=== PATIENT | female | born 1995 | race Caucasian/White ===

== ENCOUNTER 2022-02-09 09:46 | Outpatient (CLI) | payer OTHER | END 2022-02-09 09:47 | disposition home or self-care (01) | LOC: CSHULT 09:46 | PROVIDERS: ATTEND Family Medicine | DX: Z34.82 Encounter for supervision of other normal pregnancy, second trimester (principal); Z3A.23 23 weeks gestation of pregnancy | CPT/HCPCS: 76805 ==

== ENCOUNTER 2022-03-17 02:17 | Day surgery (SDC) | payer OTHER ==
[2022-03-17] MEDS ORDERED: hydrALAZINE 20 MG/ML VIAL SLOW IVP PRN (02:33)
[2022-03-17] MEDS ORDERED: Lactated Ringer's 1,000 ML IV SCH ×2 (02:45)
[2022-03-17 02:55] LABS: Bilirubin Neg (Negative); Blood, Urine Negative (Negative); Clarity Clear (Clear); Glucose, Urine (Dipstick) Normal (Negative); Ketone, Urine Negative (Negative); Leukocyte 25 (Negative); Nitrite Negative (Negative); Protein, Urine (Dipstick) 30 mg/dl (Neg-Trace); Specific Gravity, Urine 1.015 (1.002-1.036); Urobilinogen Normal mg/dL (Less than 2)
[2022-03-17 02:56] LABS: Bacteria/HPF None Seen HPF (None Seen); RBC/HPF 0-3 HPF (0-3); Squamous Epithelial 0-3 HPF (0-3); Urine Culture Reflex No No
[2022-03-17 02:57] LABS: #Basophils 0.1 10x3/uL (0.0-0.2); #Eosinphils 0.1 10x3/uL (0.0-0.5); #Monocytes 0.5 10x3/uL (0.0-1.1); #Neutrophils 4.9 10x3/uL (1.5-8.4); %Basophils 0.6 % (0.0-2.0); %Eosinophils 1.7 % (0.0-6.0); %Lymphocytes 27.2 % (18.0-47.0); %Monocytes 6.6 % (0.0-10.0); %Neutrophils 63.1 % (40.0-75.0); Mean Corpuscular HGB CONC 36.5 g/dL (32.0-36.0); Mean Corpuscular Hemoglobin 32.6 pg (27.0-33.0); Mean Corpuscular Volume 89.3 fl (81.6-98.3); Mean Platelet Volume 9.5 fl (7.4-10.4); Platelet Count 212 10x3/uL (150-450); RBC Distribution Width 12.1 % (11.5-14.5); Red Blood Cell (RBC) Count 3.37 10x6/uL (3.90-5.03); White Blood Cell (WBC) Count 7.8 10x3/uL (3.5-10.5)
[2022-03-17] MEDS ORDERED: Morphine 4 MG/ML VIAL ONE (03:00)
[2022-03-17 03:11] VITALS: BMI 26.2
[2022-03-17 03:13] LABS: Anion Gap 15 mmol/L (10-20); BUN (Urea Nitrogen) 19 mg/dL (7.0-18.7); Calc. Creatinine Clearance 112 mL/min (70-130); Carbon Dioxide 22 mmol/L (22-29); Chloride 106 mmol/L (98-107); Glucose 87 mg/dL (70-105); Potassium 3.8 mmol/L (3.5-5.1); Sodium 139 mmol/L (136-145)
[2022-03-17] MEDS ORDERED: Promethazine HCl 25 MG/ML VIAL IM PRN (03:13)
[2022-03-17] MEDS ORDERED: Famotidine/PF 20 mg/2ml Vial SLOW IVP SCH (03:15)
[2022-03-17] MEDS ORDERED: Morphine 4 MG/ML VIAL SLOW IVP SCH (03:15)
== END 2022-03-17 06:30 | disposition home or self-care (01) ==
LOC: CSHLD/OP 02:17
PROVIDERS: ATTEND Obstetrics & Gynecology
DX: O99.891 Other specified diseases and conditions complicating pregnancy (principal); R10.9 Unspecified abdominal pain; N13.30 Unspecified hydronephrosis; O23.43 Unspecified infection of urinary tract in pregnancy, third trimester; N39.0 Urinary tract infection, site not specified; B95.1 Streptococcus, group B, as the cause of diseases classified elsewhere; Z3A.28 28 weeks gestation of pregnancy; Z79.2 Long term (current) use of antibiotics
CPT/HCPCS: 36415; 76770; 80048; 81001; 85025; 87086; 96360; 96361; 96375; 99283; J2270; J2550; S0028

== ENCOUNTER 2022-05-29 19:30 | Inpatient (IN) | payer OTHER ==
[~2022-05-29 19:30] MED LIST: Bupivacaine 0.25% HCL 30 ML VIAL ONE
[2022-05-29] MEDS ORDERED: NS w/ Oxytocin 30 units 500 ML IV SCH (22:26)
[2022-05-29] MEDS ORDERED: Carboprost 250 MCG/ML AMP IM PRN (22:26)
[2022-05-29] MEDS ORDERED: Lactated Ringer's 1,000 ML IV SCH (22:26)
[2022-05-29] MEDS ORDERED: Promethazine HCl 25 MG/ML VIAL IM PRN (22:26)
[2022-05-29] MEDS ORDERED: Misoprostol 200 MCG TAB PR PRN (22:26)
[2022-05-29] MEDS ORDERED: Lidocaine 1% (PF) 30 ML VIAL SC PRN (22:26)
[2022-05-29] MEDS ORDERED: Diphenoxylate HCl/Atropine Tablet PO PRN (22:26)
[2022-05-29] MEDS ORDERED: Methylergonovine 0.2 MG/ML VIAL IM PRN (22:26)
[2022-05-29] MEDS ORDERED: Ibuprofen 800 MG TAB PO PRN (22:26)
[2022-05-29] MEDS ORDERED: Acetaminophen 500 MG TAB PO PRN (22:26)
[2022-05-29] MEDS ORDERED: Ondansetron PF 4 MG/2 ML Vial IVP PRN (22:26)
[2022-05-29] MEDS ORDERED: HYDROcodone/Acetaminophen 5/325 mg Tablet PO PRN (22:26)
[2022-05-29] MEDS ORDERED: hydrALAZINE 20 MG/ML VIAL SLOW IVP PRN (22:26)
[2022-05-29] MEDS ORDERED: Penicillin G Potassium 5 MILL.UNITS in Sodium Chloride 0.9% 100 ML IVPB SCH (22:30)
[2022-05-29] MEDS: Misoprostol 100 MCG TAB PO SCH (23:03)
[2022-05-29 23:21] LABS: Hemoglobin 11.6 g/dL (12.0-15.5); Mean Corpuscular HGB CONC 36.4 g/dL (32.0-36.0); Mean Corpuscular Hemoglobin 31.9 pg (27.0-33.0); Mean Corpuscular Volume 87.6 fl (81.6-98.3); Platelet Count 233 10x3/uL (150-450); RBC Distribution Width 12.5 % (11.5-14.5); Red Blood Cell (RBC) Count 3.64 10x6/uL (3.90-5.03)
[2022-05-29 23:59] LABS: Hep B Surf Ag Non-Reactive S/CO (NonReactive); Syphilis Antibody Nonreactive (Nonreactive); Syphilis Antibody Index 0.04 S/CO (<1.00 Non-Reactive)
[2022-05-30 00:33] LABS: HBSAg Index 0.18 S/CO (0-0.99)
[2022-05-30 00:49] LABS: SARS-CoV-2 NAA Rapid Test Not Detected (NotDetected)
[2022-05-30 01:09] VITALS: BMI 28.8
[2022-05-30] MEDS ORDERED: Penicillin G 2.5 MILL.units 2.5 MILL.UNITS in Premix Bag 1 BAG IVPB SCH (02:00)
[2022-05-30] MEDS: Misoprostol 100 MCG TAB PO SCH ×2 (03:25→20:16)
[2022-05-30] MEDS ORDERED: Penicillin G Potassium 5 MILL.UNITS VIAL ONE (07:52)
[2022-05-30] MEDS ORDERED: Fentanyl 2 mcg/Bup 0.1% Cadd 100 ML ONE (09:09)
[2022-05-30] MEDS ORDERED: Ondansetron PF 4 MG/2 ML Vial IVP PRN ×2 (10:34→17:43)
[2022-05-30] MEDS ORDERED: Moisturizing Cream (Eucerin) 113 GM JAR TOP PRN (10:34)
[2022-05-30] MEDS ORDERED: Naloxone HCl 0.4 mg/ml Vial IVP PRN ×2 (10:34)
[2022-05-30] MEDS ORDERED: Promethazine HCl 25 MG/ML VIAL IM PRN ×2 (10:34→17:43)
[2022-05-30] MEDS ORDERED: Lactated Ringer's 500 ML IV PRN (10:34)
[2022-05-30] MEDS ORDERED: ePHEDrine Sulfate 50 MG/10 ML VIAL SLOW IVP PRN (10:34)
[2022-05-30] MEDS ORDERED: diphenhydrAMINE 50 MG/ML VIAL IVP PRN (10:34)
[2022-05-30] MEDS ORDERED: Acetaminophen 325 MG TAB PO PRN (10:34)
[2022-05-30] MEDS ORDERED: Fentanyl 2 mcg/Bupivacaine 0.1% Cassette 100 ML EPIDURAL SCH (10:45)
[2022-05-30] MEDS ORDERED: Communication Order-Pharmacy FS SCH (10:45)
[2022-05-30] MEDS ORDERED: Ondansetron PF 4 MG/2 ML Vial ONE (15:28)
[2022-05-30] MEDS ORDERED: Bisacodyl 10 MG SUPP PR PRN (17:43)
[2022-05-30] MEDS ORDERED: HYDROcodone/Acetaminophen 5/325 mg Tablet PO PRN ×2 (17:43)
[2022-05-30] MEDS ORDERED: Lanolin Ointment 7 GM TUBE TOP PRN (17:43)
[2022-05-30] MEDS ORDERED: NS w/ Oxytocin 30 units 500 ML IV SCH (17:43)
[2022-05-30] MEDS ORDERED: diphenhydrAMINE 25 MG CAP PO PRN (17:43)
[2022-05-30] MEDS ORDERED: Milk Of Magnesia 30 ML UDCUP PO PRN (17:43)
[2022-05-30] MEDS ORDERED: hydrALAZINE 20 MG/ML VIAL SLOW IVP PRN (17:43)
[2022-05-30] MEDS ORDERED: Preparation H Ointment 28 GM TUBE PR PRN (17:43)
[2022-05-30] MEDS ORDERED: Benzocaine-Menthol 82.5 ML CAN TOP PRN (17:43)
[2022-05-30] MEDS ORDERED: Boostrix 0.5 ML (Tdap) VIAL IM ONE (17:43)
[2022-05-30] MEDS: Ibuprofen 800 MG TAB PO SCH (18:47)
[2022-05-31] MEDS: Ibuprofen 800 MG TAB PO SCH ×3 (01:35→13:15)
[2022-05-31] MEDS: Docusate 100 MG CAP PO SCH ×2 (01:36→09:27)
[2022-05-31] MEDS ORDERED: Prenatal Vitamin 1 TAB PO SCH (09:00)
[2022-05-31] MEDS: Ferrous Sulfate 325 MG TAB PO SCH ×2 (09:34→10:23)
[2022-05-31 16:07] VITALS: BP 114/57; TEMP 98
== END 2022-05-31 19:10 | disposition home or self-care (01) | DRG 807 ==
LOC: CSHLD 21:59 → CSHPP 05-30 19:35
PROVIDERS: ADMIT Family Medicine; ATTEND Family Medicine
PROC: 10E0XZZ Delivery of Products of Conception, External Approach (ICD-10-PCS; principal; 2022-05-30)
PROC: 10907ZC Drainage of Amniotic Fluid, Therapeutic from Products of Conception, Via Natural or Artificial Opening (ICD-10-PCS; 2022-05-30)
PROC: 3E0P7VZ Introduction of Hormone into Female Reproductive, Via Natural or Artificial Opening (ICD-10-PCS; 2022-05-30)
PROC: 0UQMXZZ Repair Vulva, External Approach (ICD-10-PCS; 2022-05-30)
DX: O99.824 Streptococcus B carrier state complicating childbirth (principal); Z37.0 Single live birth; Z20.822 Contact with and (suspected) exposure to COVID-19; Z3A.39 39 weeks gestation of pregnancy; O70.0 First degree perineal laceration during delivery
CPT/HCPCS: 36415; 51702; 85027; 86780; 86850; 86900; 86901; 87340; J0595; J2540; S0020; U0002